=== PATIENT | female | born 1995 | race Caucasian/White ===

== ENCOUNTER 2017-10-06 07:42 | Emergency (ER) | payer MEDICAID ==
[2017-10-06] MEDS ORDERED: Sodium Chloride 0.9% 1,000 ML ONE (08:15)
[2017-10-06] MEDS ORDERED: Famotidine/PF 20 mg/2ml Vial ONE (08:16)
[2017-10-06] MEDS ORDERED: Metoclopramide HCl 10 MG/2 ML VIAL ONE (08:16)
[2017-10-06] MEDS ORDERED: diphenhydrAMINE 50 MG/ML VIAL ONE (08:16)
[2017-10-06 08:50] LABS: Anion Gap 13 mmol/L (10-20); BUN (Urea Nitrogen) 8 mg/dL (7.0-18.7); Calc. Creatinine Clearance 0 mL/min (70-130); Calcium 11.1 mg/dL (7.8-10.44); Carbon Dioxide 24 mmol/L (22-29); Chloride 102 mmol/L (98-107); Estimated GFR-MDRD Greater than 90; Glucose 67 mg/dL (70-105); Potassium 3.9 mmol/L (3.5-5.1); Sodium 135 mmol/L (136-145)
== END 2017-10-06 09:55 | disposition home or self-care (01) ==
LOC: NAV ERS 07:42
DX: O21.0 Mild hyperemesis gravidarum (principal); O99.611 Diseases of the digestive system complicating pregnancy, first trimester; K59.00 Constipation, unspecified; Z3A.10 10 weeks gestation of pregnancy
CPT/HCPCS: 36415; 80048; 84702; 96361; 96374; 96375; J1200; J2765; J7050; S0028